=== PATIENT | female | born 1975 | race Caucasian/White ===

== ENCOUNTER 2017-06-09 16:55 | Emergency (ER) | payer BC ==
[2017-06-09 17:21] VITALS: BP 120/80
--- NOTE | 2017-06-09 17:32 | ED ---
Influenza-Like Illness - HPI Summary HPI Summary: 42 female presents with runny nose, sore throat, ear pain and fatigue for the past day. States her son was recently diagnosed with flu B. She denies any chest or shortness breath. She denies any bowel pain. She denies any nausea vomiting diarrhea. She is able to tolerate foods. She denies any headache or neck stiffness. She has not taken anything for her symptoms. She admits occasional difficulty swallowing. She states she is allergic to Tamiflu. She came to get tested for the flu. - History of Current Complaint Chief Complaint: UCRespiratory Time Seen by Provider: 06/09/17 17:23 - Allergy/Home Medications Allergies/Adverse Reactions: Allergies Allergy/AdvReac Type Severity Reaction Status Date / Time oseltamivir [From Tamiflu] Allergy Rash Verified 06/09/17 17:22 PMH/Surg Hx/FS Hx/Imm Hx Endocrine/Hematology History: Denies: Hx Anticoagulant Therapy Neurological History: Reports: Hx Seizures Infectious Disease History: No Infectious Disease History: Denies: Traveled Outside the [place] in Last 30 Days - Family History Known Family History: Positive: None - Social History Alcohol Use: Rare Substance Use Type: Reports: None Smoking Status (MU): Never Smoked Tobacco Review of Systems Positive: Fatigue. Negative: Fever Positive: Sore Throat Negative: Chest Pain Positive: Cough. Negative: Shortness Of Breath All Other Systems Reviewed And Are Negative: Yes Physical Exam Triage Information Reviewed: Yes Vital Signs On Initial Exam: Initial Vitals Temp Pulse Resp BP Pulse Ox 98.6 F 84 12 120/80 100 06/09/17 17:19 06/09/17 17:19 06/09/17 17:19 06/09/17 17:19 06/09/17 17:19 Vital Signs Reviewed: Yes Appearance: Positive: Well-Appearing Skin: Positive: Warm, Dry Head/Face: Positive: Normal Head/Face Inspection Eyes: Positive: Normal, EOMI, RALPH, Conjunctiva Clear ENT: Positive: Normal ENT inspection, Pharyngeal erythema, TMs normal, Uvula midline, Other - soft palate symmetric. Negative: Tonsillar swelling, Tonsillar exudate, Trismus, Muffled voice Neck: Positive: Supple, Nontender, No Lymphadenopathy Respiratory/Lung Sounds: Positive: Clear to Auscultation, Breath Sounds Present Cardiovascular: Positive: Normal, RRR Abdomen Description: Positive: Nontender, Soft Bowel Sounds: Positive: Present Musculoskeletal: Positive: Normal Neurological: Positive: Normal Psychiatric: Positive: Normal Diagnostics - Vital Signs Vital Signs Temp Pulse Resp BP Pulse Ox 06/09/17 17:19 98.6 F 84 12 120/80 100 - Laboratory Lab Statement: Any lab studies that have been ordered have been reviewed, and results considered in the medical decision making process. Flu Symptom Course/Dx - Course Course Of Treatment: 42 female presents with runny nose, sore throat, ear pain and fatigue for the past day. States her son was recently diagnosed with flu B. She denies any chest or shortness breath. She denies any bowel pain. She denies any nausea vomiting diarrhea. She is able to tolerate foods. She denies any headache or neck stiffness. She has not taken anything for her symptoms. She admits occasional difficulty swallowing. She states she is allergic to Tamiflu. She came to get tested for the flu. On exam lungs clear to auscultation. Pharynx erythematous. Uvula midline. Soft palate symmetric. Abdomen soft nontender. flu neg but likely has flu as son has it. explained that going to need to take tyenlol or ibuprofen every 6 hours for fever and aches. can not do an antiviral as is allergic. patient understand and agrees with plan. - Diagnoses Differential Diagnosis/HQI/PQRI: Positive: Influenza, Pneumonia, Upper Respiratory Infection Provider Diagnoses: Influenza Discharge - Sign-Out/Discharge Documenting (check all that apply): Discharge - Discharge Plan Condition: Good Disposition: HOME Patient Education Materials: Influenza (ED) Referrals: Dipti Garcia MD [Primary Care Provider] - Additional Instructions: With son positive even though your swap is negative likely have the flu Take Tylenol and ibuprofen for muscle aches and fever every 6 hours Saline rinse can be used multiple times a day for nasal congestion Use humidifier in room or place bowls of warm water around room for cough Try to drink fluids as tolerated Follow up with primary within 7 days Return to ED if develop any new or worsening symptoms - Billing Disposition and Condition Condition: GOOD Disposition: HOME
== END 2017-06-09 18:11 | disposition home or self-care (01) ==
LOC: UCEAST 16:55
DX: J11.1 Influenza due to unidentified influenza virus with other respiratory manifestations (principal); R56.9 Unspecified convulsions; Z88.8 Allergy status to other drugs, medicaments and biological substances
CPT/HCPCS: 87502; 99211; G0463

== ENCOUNTER 2018-08-04 18:59 | Emergency (ER) | payer SELFPAY ==
--- NOTE | 2018-08-04 19:50 | ED ---
Adult Trauma - HPI Summary HPI Summary: She complains of mechanical fall while climbing stairs subsequent head injury, right ankle and right knee pain. Positive LOC for a few seconds, positive nausea. Denies SARMIENTO, amnesia, vision change, wound, altered mental status, focal deficits, oral trauma, facial pain, neck pain, back pain, CP, SOB, V/V abdominal pain, change in urine, change in BM. - History of Current Complaint Chief Complaint: EDHeadInjury Stated Complaint: FALL/RT ANKLE, HEAD, KNEE INJURY PER PT Time Seen by Provider: 08/04/18 19:31 Hx Obtained From: Patient Hx Last Menstrual Period: 2.5 wks ago Mechanism of Injury: Fall Ambulatory at the Scene: Yes Loss of Consciousness: no loss of consciousness Onset/Duration: Started Hours Ago Onset of Pain: Immediate Onset Severity: Severe Current Severity: Severe Pain Intensity: 8 Pain Scale Used: 0-10 Numeric Location: Head, Extremities Character: Aching Aggravating Factor(s): Movement Alleviating Factor(s): Rest Associated Signs & Symptoms: Positive: Loss of Consciousness - Allergy/Home Medications Allergies/Adverse Reactions: Allergies Allergy/AdvReac Type Severity Reaction Status Date / Time oseltamivir [From Tamiflu] Allergy Rash Verified 08/04/18 19:58 PMH/Surg Hx/FS Hx/Imm Hx Endocrine/Hematology History: Denies: Hx Anticoagulant Therapy Cardiovascular History: Denies: Hx Pacemaker/ICD History: Denies: Hx Dialysis Sensory History: Denies: Hx Legally Blind Opthamlomology History: Denies: Hx Eye Prosthesis EENT History: Denies: Hx Deafness Neurological History: Reports: Hx Seizures Psychiatric History: Denies: Hx Autism Infectious Disease History: Yes Infectious Disease History: Denies: Traveled Outside the [place] in Last 30 Days - Family History Known Family History: Positive: None - Social History Alcohol Use: Rare Substance Use Type: Reports: None Smoking Status (MU): Never Smoked Tobacco Review of Systems Constitutional: Negative Eyes: Negative ENT: Negative Cardiovascular: Negative Respiratory: Negative Positive: Nausea Genitourinary: Negative Musculoskeletal: Other Skin: Negative Neurological: Negative Psychological: Normal All Other Systems Reviewed And Are Negative: Yes Physical Exam - Summary Physical Exam Summary: Contusion and abrasion on top of head. No indication of oral, facial trauma. Neuro exam normal. Full range of motion of jaw and neck. No pain with palpation of neck, back, chest wall, abdomen. Patient moving bilateral upper extremities freely. Patient moving left lower extremity freely. Patient able to flex and extend right knee with some mild pain. Pain with palpation of right ankle. No ecchymosis, erythema, deformity, swelling noted to right knee or right ankle. PMS intact distally on right lower extremity. No indication of amnesia. Triage Information Reviewed: Yes Vital Signs On Initial Exam: Initial Vitals Temp Pulse Resp BP Pulse Ox 97.8 F 81 18 142/97 100 08/04/18 19:04 08/04/18 19:04 08/04/18 19:04 08/04/18 19:04 08/04/18 19:04 Vital Signs Reviewed: Yes Appearance: Positive: Well-Appearing Skin: Positive: Warm Head/Face: Positive: Normal Head/Face Inspection Eyes: Positive: Normal ENT: Positive: Normal ENT inspection Dental: Negative: Abscess @, Bleeding Neck: Positive: Supple Respiratory/Lung Sounds: Positive: Clear to Auscultation Cardiovascular: Positive: Normal Abdomen Description: Positive: Nontender Musculoskeletal: Positive: Normal Neurological: Positive: Normal Psychiatric: Positive: Normal AVPU Assessment: Alert - John Coma Scale Best Eye Response: 4 - Spontaneous Best Motor Response: 6 - Obeys Commands Best Verbal Response: 5 - Oriented Coma Scale Total: 15 Diagnostics - Vital Signs Vital Signs Temp Pulse Resp BP Pulse Ox 08/04/18 19:04 97.8 F 81 18 142/97 100 - Laboratory Lab Statement: Any lab studies that have been ordered have been reviewed, and results considered in the medical decision making process. Adult Trauma Course/Dx - Course Course Of Treatment: She complains of mechanical fall while climbing stairs subsequent head injury, right ankle and right knee pain. Positive LOC for a few seconds, positive nausea. Denies SARMIENTO, amnesia, vision change, wound, altered mental status, focal deficits, oral trauma, facial pain, neck pain, back pain, CP, SOB, V/D, abdominal pain, change in urine, change in BM. Physical exam:Contusion and abrasion on top of head. No indication of oral, facial trauma. Neuro exam normal. Full range of motion of jaw and neck. No pain with palpation of neck, back, chest wall, abdomen. Patient moving bilateral upper extremities freely. Patient moving left lower extremity freely. Patient able to flex and extend right knee with some mild pain. Pain with palpation of right ankle. No ecchymosis, erythema, deformity, swelling noted to right knee or right ankle. PMS intact distally on right lower extremity. No indication of amnesia. Vital signs within normal limits. CT brain negative. X-ray knee unremarkable. X-ray right ankle unremarkable. Gel ankle splint and crutches provided. Follow-up with orthopedics. Ice and ibuprofen. Patient understands and approves plan - Diagnoses Provider Diagnoses: Fall, Right ankle strain, Head injury Discharge - Sign-Out/Discharge Documenting (check all that apply): Patient Departure Patient Received Moderate/Deep Sedation with Procedure: No - Discharge Plan Condition: Stable Disposition: HOME Patient Education Materials: Ankle Sprain (ED), Head Injury (ED), Ankle Stirrup Splint (ED) Referrals: Dipti Garcia MD [Primary Care Provider] - Zack Cabrera MD [Medical Doctor] - Additional Instructions: Tylenol or ibuprofen for pain. Gradually increase weightbearing and movement of right ankle. If pain persists follow-up with orthopedics Dr. Cabrera for further evaluation. Return to the ED for any new or worsening symptoms. - Billing Disposition and Condition Condition: STABLE Disposition: Home
[2018-08-04 21:06] VITALS: BP 138/86
== END 2018-08-04 21:05 | disposition home or self-care (01) ==
LOC: ED 18:59
DX: S96.911A Strain of unspecified muscle and tendon at ankle and foot level, right foot, initial encounter (principal); S09.90XA Unspecified injury of head, initial encounter; W10.9XXA Fall (on) (from) unspecified stairs and steps, initial encounter; Y93.01 Activity, walking, marching and hiking; Z88.8 Allergy status to other drugs, medicaments and biological substances
CPT/HCPCS: 70450; 99282

== ENCOUNTER 2019-01-06 16:50 | Emergency (ER) | payer BC ==
[2019-01-06 17:01] VITALS: BP 123/84
--- NOTE | 2019-01-06 17:42 | UC ---
Throat Pain/Nasal Jim HPI - HPI Summary HPI Summary: Patient is a 43yo female presenting with nasal congestion, PND, sinus tenderness , ear pressure, and mild productive cough x10 days. Also notes headaches. Denies sore throat. Denies fever, chills, nausea, vomiting. Denies SOB and wheezing. States she has taken otc cough and cold meds including decongestants without relief. - History of Current Complaint Chief Complaint: UCRespiratory Stated Complaint: COLD SYMPTOMS Hx Obtained From: Patient Hx Last Menstrual Period: 12/29/18 Onset/Duration: Gradual Onset Severity: Mild Pain Intensity: 4 Pain Scale Used: 0-10 Numeric - Allergies/Home Medications Allergies/Adverse Reactions: Allergies Allergy/AdvReac Type Severity Reaction Status Date / Time oseltamivir [From Tamiflu] Allergy Rash Verified 01/06/19 17:01 Home Medications: Home Medications Ibuprofen TAB* [Motrin TAB* 400 MG] 400 mg PO Q6HR 01/06/19 [History Confirmed 01/06/19] PMH/Surg Hx/FS Hx/Imm Hx Previously Healthy: Yes Other History Of: Negative For: Anticoagulant Therapy - Surgical History Surgical History: None - Family History Known Family History: Positive: None, Non-Contributory - Social History Alcohol Use: Weekly Alcohol Amount: w/e Substance Use Type: None Smoking Status (MU): Former Smoker When Did the Patient Quit Smoking/Using Tobacco: 14 years ago Review of Systems All Other Systems Reviewed And Are Negative: Yes Constitutional: Positive: Negative. Negative: Fever, Chills ENT: Positive: Negative, Ear Ache, Nasal Discharge, Sinus Congestion, Sinus Pain /Tenderness. Negative: Sore Throat Respiratory: Positive: Cough. Negative: Shortness Of Breath Cardiovascular: Positive: Negative. Negative: Palpitations, Chest Pain Gastrointestinal: Positive: Negative. Negative: Abdominal Pain, Vomiting, Nausea Musculoskeletal: Negative: Myalgia Neurological: Positive: Headache Physical Exam Triage Information Reviewed: Yes Appearance: Well-Appearing, No Pain Distress, Well-Nourished Vital Signs: Initial Vital Signs Temp 98 F 01/06/19 16:57 Pulse 77 01/06/19 16:57 Resp 16 01/06/19 16:57 BP 123/84 01/06/19 16:57 Pulse Ox 99 01/06/19 16:57 Vital Signs Reviewed: Yes Eyes: Positive: Conjunctiva Clear ENT: Positive: Hearing grossly normal, Pharyngeal erythema, Nasal congestion, Nasal drainage - PND, TMs normal, Sinus tenderness - frontal, Uvula midline. Negative: TM bulging, TM dull, TM red, Tonsillar swelling, Tonsillar exudate Neck exam: Normal Neck: Positive: Supple, Nontender, No Lymphadenopathy Respiratory Exam: Normal Respiratory: Positive: Lungs clear, Normal breath sounds, No respiratory distress. Negative: Crackles, Rhonchi, Stridor, Wheezing Cardiovascular Exam: Normal Cardiovascular: Positive: RRR. Negative: Tachycardia Neurological: Positive: Alert Psychological: Positive: Age Appropriate Behavior Throat Pain/Nasal Course/Dx - Course Course Of Treatment: I treated with Augmentin and flonase for sinusitis. Discussed likely viral bronchitis with patient. Instructed her to follow up with PCP if symptoms persist or go to ED if they worsen. Patient voiced understanding and agreed with the treatment plan. - Differential Dx/Diagnosis Provider Diagnosis: Sinusitis, Acute bronchitis Discharge ED - Sign-Out/Discharge Documenting (check all that apply): Patient Departure All imaging exams completed and their final reports reviewed: No Studies - Discharge Plan Condition: Stable Disposition: HOME Prescriptions: Amoxicillin/Clavulanate TAB* [Augmentin TAB 875*] 875 mg PO BID #14 tab Fluticasone NASAL SPRAY 50MCG* [Flonase NASAL SPRAY 50MCG*] 2 spray BOTH NARES DAILY #1 btl Patient Education Materials: Rhinosinusitis (ED), Acute Bronchitis (ED) Referrals: Dipti Garcia MD [Primary Care Provider] - If Needed Additional Instructions: As discussed, take Augmentin for the treatment of your sinusitis. You may use Flonase as prescribed for symptomatic relief. You may take ibuprofen as directed for pain relief. Get plenty of rest and fluids. Follow up with your primary care doctor if your symptoms do not resolve within 7 days. Go to the emergency room if you experience fever higher than 102, chills, nausea , vomiting, or difficulty breathing. - Billing Disposition and Condition Condition: STABLE Disposition: Home
== END 2019-01-06 18:00 | disposition home or self-care (01) ==
LOC: UCEAST 16:50
DX: J20.9 Acute bronchitis, unspecified (principal); J32.9 Chronic sinusitis, unspecified; Z87.891 Personal history of nicotine dependence; Z88.8 Allergy status to other drugs, medicaments and biological substances
CPT/HCPCS: 99212; G0463